=== PATIENT | male | born 1985 | race Caucasian/White ===

== ENCOUNTER 2020-01-09 21:07 | Inpatient (IN) ==
[2020-01-09 21:40] LABS: Appearance Urine Clear (Clear); Bilirubin Urine Negative (Negative); Blood Urine Negative (Negative); Color Urine Yellow; Glucose Urine UA Negative (Negative); Ketones Urine Trace (Negative); Leukocyte Esterase Urine Negative (Negative); Nitrite Urine Negative (Negative); Protein Urine Negative (Negative); Specific Gravity Urine 1.034 (1.000-1.030); Urobilinogen Urine Negative (Negative)
[2020-01-09 21:56] LABS: Eosinophils # (auto) 0.06 K/uL (0-0.5); Eosinophils % (auto) 0.8 %; Hematocrit (blood only) 47.5 % (42-52); Hemoglobin 16.6 g/dL (14.0-18.0); Immature Granulocytes # (auto) 0.01 K/uL (0.00-0.02); Immature Granulocytes % (auto) 0.1 %; Lymphocytes # (auto) 1.54 K/uL (1.2-3.4); Lymphocytes % (auto) 21.8 %; Mean Corpuscular Hemoglobin 30.7 pg (25-34); Mean Corpuscular Hgb Conc 34.9 g/dL (32-36); Mean Corpuscular Volume 87.8 fL (80-100); Mean Platelet Volume 9.7 fL (7.4-10.4); Monocytes # (auto) 0.73 K/uL (0.11-0.59); Monocytes % (auto) 10.3 %; Neutrophils # (auto) 4.73 K/uL (1.4-6.5); Platelet Count 183 K/uL (130-400); RDW Coefficient of Variation 12.7 % (11.5-14.5); RDW Standard Deviation 40.4 fL (36.4-46.3); Red Blood Count 5.41 M/uL (4.7-6.1); White Blood Count 7.07 K/uL (4.8-10.8)
[2020-01-09 22:06] LABS: Albumin Level 3.5 gm/dl (3.4-5.0); Calcium 8.5 mg/dl (8.5-10.1); Creatinine Clr Calc Pharmacy 107.7 ml/min; Est GFR (African American) 110.4; Est GFR (Non-African American) 95.2; Potassium 3.6 mmol/L (3.5-5.1)
[2020-01-09 22:07] LABS: Acetaminophen < 2 ug/ml (10-30); Salicylate < 1.7 mg/dl (2.8-20)
[2020-01-09 22:08] LABS: Amphetamines+Metham, Urine Neg (Neg); Barbiturates, Urine Neg (Neg); Benzodiazepine, Urine Neg (Neg); Cocaine, Urine Neg (Neg); MDMA (Ecstacy), Urine Neg (Neg); Methadone, Urine Neg (Neg); Opiate, Urine Neg (Neg); Phencyclidine, Urine Neg (Neg)
[2020-01-09 22:16] LABS: Bilirubin,Total 0.2 mg/dl (0.2-1); Globulin 3.6 gm/dl (2.5-4.0); Thyroid Stimulating Hormone 1.49 uIu/ml (0.300-4.500); Total Protein 7.1 gm/dl (6.4-8.2)
--- NOTE | 2020-01-10 00:15 | Emergency Department Note ---
Entered by Bull Callahan acting as a scribe for History of Present Illness General Chief complaint: Mental Health Evaluation Stated complaint: suicidal ideation Time Seen by Provider: 01/09/20 21:14 Source: patient History of Present Illness Onset (ago): day(s) (last night) Location: head Pain Consistency: + constant Quality: + other (suicidal ideations) Exacerbated By: + other (worsening anxiety and depression) Associated symptoms: + denies other symptoms (physical complaints) The patient is a 34 y/o male who presents to the ED w/ CC of constant suicidal ideations beginning last evening. The patient states his anxiety and depression has been worsening over the past few days. He reports he cannot handle it anymore and developed suicidal ideations last night while he was sleeping. The patient notes he tried to go back to sleep after his suicidal thoughts occurred, but they did not resolve with sleep. He states he decided after this that he wanted to get help. The patient reports he has not been taking his medication due to the lack of insurance. He notes he was in the [facility] 18 years ago for medication adjustment. He denies physical complaints. Home Medications Home Medications Medication Instructions Recorded Confirmed Type fluoxetine 40 mg PO QAM 30 Days #60 cap 01/13/20 Rx Allergies Allergy/AdvReac Type Severity Reaction Status Date / Time amoxicillin Allergy Unknown UNKNOWN Verified 09/29/16 10:35 ampicillin Allergy Unknown UNKNOWN Verified 09/29/16 10:35 Bactrim Allergy Unknown UNKNOWN Verified 09/29/16 10:35 Past Med/Surg History Medical History Ankle pain (Inactive) Anxiety Depression Neck pain on left side (Inactive) Non-cardiac chest pain (Inactive) Surgical History No pertinent past surgical history Family History Other Diabetes Hypertension Social History Preferred Language: Comoran Communication Ability: Effective Beliefs That Will Affect Care: None Feels Safe at Home: Yes Smoking Status: Never smoker Tobacco Type: smokeless tobacco ; Review of Systems See HPI for pertinent positives & negatives. and A total of 10 systems reviewed and were otherwise negative Physical Exam Vital Signs Vital Signs - 24 hr 01/09/20 21:11 01/10/20 00:56 01/10/20 02:21 Temperature 37 C Temperature Source Oral Pulse Rate 94 H 72 Pulse Rate [Right Finger] 72 Pulse Rhythm Regular Pulse Rhythm [Right Finger] Regular Respiratory Rate 14 18 16 Respiratory Effort / Characteristics Non-Labored Spontaneous Non-Labored Spontaneous Respiratory Depth Normal Normal Respiratory Pattern Regular Blood Pressure 145/91 H 114/65 Blood Pressure [Right Arm] 114/65 Blood Pressure Mean 109 Blood Pressure Mean [Right Arm] 81 Blood Pressure Position [Right Arm] Lying Pulse Oximetry 98 95 95 Oxygen Delivery Method Room Air Room Air Room Air Sepsis Recent Fever Within 48 Hours No Sepsis New/Unexplained Change in Mental Status No Sepsis Action Taken by Nursing No Action Required GENERAL: Awake, alert, well-appearing, in no acute distress HENT: Normocephalic, atraumatic. Oropharynx unremarkable. EYES: Normal conjunctiva. Sclera non-icteric. NECK: Supple. No nuchal rigidity. FROM. No JVD. RESPIRATORY: Clear to auscultation. CARDIAC: Regular rate, normal rhythm. Extremities warm and well perfused. Pulses equal. ABDOMEN: Soft, non-distended. No tenderness to palpation. No rebound or guarding. No masses. RECTAL: Deferred. MUSCULOSKELETAL: Chest examination reveals no tenderness. The back is symmetrical on inspection without obvious abnormality. There is no CVA tenderness to palpation. No joint edema. LOWER EXTREMITIES: Calves are equal size bilaterally and non-tender. No edema. No discoloration. NEURO: Normal sensorium. No sensory or motor deficits noted. SKIN: No rash or jaundice noted. PSYCH: Positive SI. Negative HI. Course Course 2216: Past medical records reviewed. The patient was evaluated in room A04B. A complete history and physical exam was performed. 2224: The patient is medically cleared. Administered Medications Discontinued Medications [facility] [place] Stop: 02/09/20 12:59 Last Admin: 01/11/20 08:51 Dose: 20 mg Documented by: [id number] Admin: 01/10/20 13:24 Dose: 20 mg Documented by: [id number] Fluoxetine HCl (Prozac) 40 mg PO QAM [facility] Stop: 02/11/20 08:59 Last Admin: 01/13/20 08:23 Dose: 40 mg Documented by: [id number] Admin: 01/12/20 09:01 Dose: 40 mg Documented by: [id number] Fluoxetine HCl (Prozac) 20 mg PO ONE ONE Stop: 01/11/20 13:01 Last Admin: 01/11/20 13:11 Dose: 20 mg Documented by: [id number] Medical Decision Making Differential Diagnosis Differential diagnoses considered include mood disorder, infection, hypoglycemia, electrolyte abnormalities, cardiac sources, intracerebral event, toxicologic, neurologic, as well as others. Medical Records Attestation: I reviewed the patient's medical records. Home Medications Current Medication List: was personally reviewed by me Laboratory Data Attestation: I reviewed the patient's lab results. Result diagrams: 01/09/20 21:34 01/09/20 21:34 Lab Results 01/09/20 01/09/20 01/09/20 Range/Units 21:21 21:21 21:34 WBC 7.07 (4.8-10.8) K/uL RBC 5.41 (4.7-6.1) M/uL Hgb 16.6 (14.0-18.0) g/dL Hct 47.5 (42-52) % MCV 87.8 (80-100) fL MCH 30.7 (25-34) pg MCHC 34.9 (32-36) g/dL RDW Std Deviation 40.4 (36.4-46.3) fL RDW Coeff of Cole 12.7 (11.5-14.5) % Plt Count 183 (130-400) K/uL MPV 9.7 (7.4-10.4) fL Immature Gran % (Auto) 0.1 % Neut % (Auto) 67.0 % Lymph % (Auto) 21.8 % Newberry % (Auto) 10.3 % Eos % (Auto) 0.8 % Baso % (Auto) 0.0 % Immature Gran # (Auto) 0.01 (0.00-0.02) K/uL Neut # (Auto) 4.73 (1.4-6.5) K/uL Lymph # (Auto) 1.54 (1.2-3.4) K/uL Newberry # (Auto) 0.73 H (0.11-0.59) K/uL Eos # (Auto) 0.06 (0-0.5) K/uL Baso # (Auto) 0.00 (0-0.2) K/uL Sodium (136-145) mmol/L Potassium (3.5-5.1) mmol/L Chloride (98-107) mmol/L Carbon Dioxide (21-32) mmol/L Anion Gap (3-11) BUN (7-18) mg/dl Creatinine (0.6-1.4) mg/dl Est Cr Clr Drug Dosing ml/min Est GFR ( Amer) Est GFR (Non-Af Amer) BUN/Creatinine Ratio (10-20) Glucose (70-99) mg/dl Calcium (8.5-10.1) mg/dl Total Bilirubin (0.2-1) mg/dl AST (15-37) U/L ALT (12-78) U/L Alkaline Phosphatase (45-117) U/L Total Protein (6.4-8.2) gm/dl Albumin (3.4-5.0) gm/dl Globulin (2.5-4.0) gm/dl Albumin/Globulin Ratio (0.9-2) TSH (0.300-4.500) uIu/ml Urine Color Yellow Urine Appearance Clear (Clear) Urine pH 5.0 (4.5-7.5) Ur Specific Murphy 1.034 H (1.000-1.030) Urine Protein Negative (Negative) Urine Glucose (UA) Negative (Negative) Urine Ketones Trace H (Negative) Urine Blood Negative (Negative) Urine Nitrite Negative (Negative) Urine Bilirubin Negative (Negative) Urine Urobilinogen Negative (Negative) Ur Leukocyte Esterase Negative (Negative) Salicylates (2.8-20) mg/dl Urine Opiates Screen Neg (Neg) Ur Methadone, Qual Neg (Neg) Acetaminophen (10-30) ug/ml Urine Barbiturates Neg (Neg) Ur Phencyclidine (PCP) Neg (Neg) U Amphetamin/Meth Scrn Neg (Neg) MDMA (Ecstasy) Screen Neg (Neg) U Benzodiazepines Scrn Neg (Neg) Ur Cocaine Metabolite Neg (Neg) U Marijuana (THC) Screen Neg (Neg) Ethyl Alcohol mg/dL (0-3) mg/dl 01/09/20 01/09/20 01/09/20 Range/Units 21:34 21:34 21:34 WBC (4.8-10.8) K/uL RBC (4.7-6.1) M/uL Hgb (14.0-18.0) g/dL Hct (42-52) % MCV (80-100) fL MCH (25-34) pg MCHC (32-36) g/dL RDW Std Deviation (36.4-46.3) fL RDW Coeff of Cole (11.5-14.5) % Plt Count (130-400) K/uL MPV (7.4-10.4) fL Immature Gran % (Auto) % Neut % (Auto) % Lymph % (Auto) % Newberry % (Auto) % Eos % (Auto) % Baso % (Auto) % Immature Gran # (Auto) (0.00-0.02) K/uL Neut # (Auto) (1.4-6.5) K/uL Lymph # (Auto) (1.2-3.4) K/uL Newberry # (Auto) (0.11-0.59) K/uL Eos # (Auto) (0-0.5) K/uL Baso # (Auto) (0-0.2) K/uL Sodium 140 (136-145) mmol/L Potassium 3.6 (3.5-5.1) mmol/L Chloride 109 H (98-107) mmol/L Carbon Dioxide 26 (21-32) mmol/L Anion Gap 5.0 (3-11) BUN 16 (7-18) mg/dl Creatinine 1.01 (0.6-1.4) mg/dl Est Cr Clr Drug Dosing 107.7 ml/min Est GFR ( Amer) 110.4 Est GFR (Non-Af Amer) 95.2 BUN/Creatinine Ratio 16.0 (10-20) Glucose 91 (70-99) mg/dl Calcium 8.5 (8.5-10.1) mg/dl Total Bilirubin 0.2 (0.2-1) mg/dl AST 11 L (15-37) U/L ALT 20 (12-78) U/L Alkaline Phosphatase 81 (45-117) U/L Total Protein 7.1 (6.4-8.2) gm/dl Albumin 3.5 (3.4-5.0) gm/dl Globulin 3.6 (2.5-4.0) gm/dl Albumin/Globulin Ratio 1.0 (0.9-2) TSH 1.490 (0.300-4.500) uIu/ml Urine Color Urine Appearance (Clear) Urine pH (4.5-7.5) Ur Specific Murphy (1.000-1.030) Urine Protein (Negative) Urine Glucose (UA) (Negative) Urine Ketones (Negative) Urine Blood (Negative) Urine Nitrite (Negative) Urine Bilirubin (Negative) Urine Urobilinogen (Negative) Ur Leukocyte Esterase (Negative) Salicylates < 1.7 L (2.8-20) mg/dl Urine Opiates Screen (Neg) Ur Methadone, Qual (Neg) Acetaminophen < 2 L (10-30) ug/ml Urine Barbiturates (Neg) Ur Phencyclidine (PCP) (Neg) U Amphetamin/Meth Scrn (Neg) MDMA (Ecstasy) Screen (Neg) U Benzodiazepines Scrn (Neg) Ur Cocaine Metabolite (Neg) U Marijuana (THC) Screen (Neg) Ethyl Alcohol mg/dL < 3.0 (0-3) mg/dl ECG Data Attestation: I personally reviewed and interpreted this ECG as follows: Indication: + other (admission) Rate (beats per minute): 59 Rhythm: + sinus bradycardia ECG Intervals/blocks: + Normal QT-c (437) ECG ST segments: no ST depression and no ST elevation Blood Pressure Blood Pressure Findings: Elevated blood pressure Blood Pressure Disposition: further management by hospitalist [facility] Narrative This is a 34-year-old male who presents the emergency department complaining of suicidal ideations. Patient was medically cleared by me. He was independently evaluated by psychiatric case management as well as 3 S. Patient was admitted to 3 [facility]. Impression & Plan Mood disorder Discharge Plan Visit Data *Final* Discharge Date/Time: 01/10/20 02:21 Chief Complaint: Mental Health Evaluation Stated Complaint: suicidal ideation ED Provider: Jaxon Ramirez Discharge Problem: Mood disorder Patient Disposition: Admitted As Inpatient Discharge Instructions Interventions: ED Discharge Assessment Last Done: 01/10/20 02:21 The smita's documentation has been prepared under my direction and personally reviewed by me in its entirety. I confirm that the note above accurately reflects all work, treatment, procedures, and medical decision making performed by me.
[2020-01-10] MEDS ORDERED: MAGNESIUM HYDROXIDE SUSP 30 ML UDC PO PRN (01:53)
[2020-01-10] MEDS ORDERED: ALUMINUM/MAGNESIUM SUSP 30 ML UDC PO PRN (01:53)
[2020-01-10] MEDS ORDERED: BISMUTH SUBSALICYLATE PER ML OMNICELL CHARGE PO PRN (01:53)
[2020-01-10] MEDS ORDERED: SODIUM CHLORIDE 0.65% NA SOLN 45 ML (OCEAN) PRN (01:53)
[2020-01-10] MEDS ORDERED: ACETAMINOPHEN 325 MG TAB PO PRN (01:53)
--- NOTE | 2020-01-10 11:47 | Electrocardiogram Report ---
Test Reason : Blood Pressure : / mmHG Vent. Rate : 059 BPM Atrial Rate : 059 BPM P-R Int : 156 ms QRS Dur : 084 ms QT Int : 442 ms P-R-T Axes : 062 055 063 degrees QTc Int : 437 ms Sinus bradycardia Otherwise normal ECG When compared with ECG of 29-SEP-2016 10:19, No significant change was found Confirmed by Jair Galvan [id number]) on 01/10/2020 11:46:51 AM Referred By: REFERRED SELF Confirmed By:Jair Galvan
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
[2020-01-10] MEDS: FLUOXETINE HCL 20 MG CAP PO SCH (13:24)
[2020-01-11] MEDS: FLUOXETINE HCL 20 MG CAP PO SCH (08:51)
--- NOTE | 2020-01-11 12:26 | Psychiatric Progress Note ---
Date of Service January 11, 2020 Impression / Recommendations Impression 34-year-old partnered male with a history of depression and anxiety who presents with suicidality, worsening mood and anxiety for the past month since he went off fluoxetine. He came in for voluntary treatment at the urging of his fialonzo, and is willing to resume antidepressant medication and be referred for outpatient psychiatry and therapy. He has never had a full course of therapy, and would benefit from that as well as ongoing medication management. Pt was agreeable with re-trial of fluoxetine, which is being titrated as tolerated. He endorses subclinical PTSD symptoms related to history of incarceration 10 years ago, has limited supports with strained relationships with multiple family members. Inpatient treatment is medically necessary due to the severity of his symptoms and risk for suicide if discharged prematurely. (1) Depression: 01/10 -resume fluoxetine 20 mg daily, and consider dose titration. Reviewed that this medication is available for $4 at [facility], even without insurance. -Encourage participation in groups and therapy. Work on healthy coping skills and discharge safety plan. -Family meeting with deborah, whom he lives with. -Refer for outpatient psychiatric care and therapy. -Assist with applying for MA. 01/11 - Titrating fluoxetine to 40mg - pt provided with additional 20mg dose this afternoon, and will increased to 40mg qAM tomorrow - Pt reporting improvement in mood overall, but admits to ongoing anxiety - Pt scheduled for a family meeting with his emy on 01/13 to discuss safety and discharge planning - Completed MA application yesterday - Encourage completion of a safety plan and ongoing group participation. (2) Anxiety: 01/10 -patient reports JOSIANE symptoms with occasional panic attacks. Resume fluoxetine as above, and offer hydroxyzine as needed in the interim. Work on coping skills and behavioral techniques for managing anxiety. 01/11 - Encouraging ongoing group participation - hydroxyzine as needed for acute anxiety - Titrating fluoxetine to 40mg as above Inventory Assets Strengths: Willing for treatment, supportive deborah Needs: Outpatient treatment adherence, psychotherapy Risk Factors Assessment Male: Yes : Yes Do You Have Access To A Gun?: No Health Problems: No Mental Health Diagnoses: Yes Substance Use Disorders: No Previous Attempt: No Family History of Suicide: No Previous Psychiatric Hospitalization: Yes Hopelessness: Yes Smoker: No Protective Factors Assessment Anglican Beliefs: No : No Responsible for Young Children: Yes Employed: Yes ([employer]) Stable Relationships: Yes Supportive Family: No Good Rapport with Provider: No Interval History Identifying Information JERRY HORNER is a 34-year-old M who currently lives in [place], has a history of depression and anxiety and stopped medications about a month ago, and was admitted on 01/10/20 01:53 on a 201 voluntary commitment for anxiety and suicidal thoughts. Chief Complaint "I'm feeling good other than not sleeping." Review of Systems Notes Constitutional: reports increased fatigue Cardiovascular: denied Respiratory: denied Gastrointestinal: denied Neurological: denied Psychiatric: denies symptoms other than stated above Total of at least 10 systems reviewed, pertinent positives as above and in HPI. Sleep Information Total Hours of Sleep: 7.75 Sleep Comments: admitted at 0226. Meal Information Percent Meal Consumed - Breakfast: 100 Percent Meal Consumed - Dinner: 100 Subjective Subjective Patient was seen & assessed and interval progress reviewed with nursing and social work. Staff report the patient has been attending some group programming, but has largely been spending time isolating in his room. Reportedly incongruent with observed affect, patient rated his mood a 9/10 las evening. Pt requires a meeting to be scheduled with his fiance, but did complete an MA application yesterday. Pt was seen today to assess progress since admission. Pt provides verbal consent to allow Sumaya Santos PA-C to observe today's encounter. Pt states that he is tired today, admitting that he has not been sleeping particularly well for the past month. Pt does believe his poor sleep is related to his anxiety, as "I just can't shut my brain off." Pt denies a desire to "become reliant an sleep medications forever." We did discuss the importance of sleep and occasional benefit of utilizing medications to promote consistent sleep. Pt reports his mood is "better", but endorses ongoing anxiety. He does state "I needed this. I kept putting it off, but I needed to come in." Pt is agreeable with titrating fluoxetine to 40mg, but providing an extra 20mg dose today. Pt denies additional needs or concerns today. Physical Exam Psychiatric Orientation: alert, oriented x 3 and cooperative Apperance: appropriately dressed, appropriately groomed and appeared stated age Eye Contact: good eye contact Motor Behavior: steady gait and station and no abnormal motor movements Speech: normal rate/rhythm/volume of speech Affect: + blunted affect (appearing somewhat subdued) Mood: + anxious mood; no depressed mood ("better") Thought Process: goal directed thought process, clear/coherent thought process and thought association intact Thought Content: reality based without delusions; no hopelessness Suicidal Thoughts: denies suicidal thoughts Homicidal Thoughts: denies homicidal thoughts Hallucinations: no auditory hallucinations and no visual hallucinations Cognition: attention grossly intact and language grossly intact Insight: + fair insight Judgement: + fair judgement Vital Signs (Past 24 Hours) Last Vital Signs Temp 36.9 C 01/11/20 06:00 Pulse 74 01/11/20 06:00 Resp 16 01/11/20 06:00 BP 113/77 01/11/20 06:00 Pulse Ox 95 01/10/20 02:21 Results & Data ([facility]) Current Inpatient Medications Current Inpatient Medications: Current Inpatient Medications Acetaminophen (Tylenol) 650 mg PO Q4H PRN PRN Reason: Headache or Minor Fever Stop: 02/09/20 01:52 Al Hydrox/Mg Hydrox/Simethicone (Maalox) 30 ml PO Q4H PRN PRN Reason: GI Upset Stop: 02/09/20 01:52 Bismuth Subsalicylate (Kaopectate) 15 ml PO PRN PRN PRN Reason: Loose Stool Stop: 02/09/20 01:52 Fluoxetine HCl (Prozac) 40 mg PO QAM YULI Stop: 02/11/20 08:59 Hydroxyzine HCl (Vistaril) 50 mg PO HSZ PRN PRN Reason: Insomnia Stop: 02/09/20 01:52 Hydroxyzine HCl (Vistaril) 25 mg PO Q4H PRN PRN Reason: Anxiety Stop: 02/09/20 01:52 Magnesium Hydroxide (Milk Of Magnesia) 30 ml PO DAILY PRN PRN Reason: Constipation Stop: 02/09/20 01:52 Sodium Chloride ([place] Nasal) 1 - 2 sprays NA PRN PRN PRN Reason: Nasal Dryness/Congestion Stop: 02/09/20 01:52 Mental Health & Subst Abuse Tx Therapist Name of Therapist: Denies Wedding Makeup Artist Name of Wedding Makeup Artist: None Post Discharge Appointments Primary Care Physician Name Of Family Doctor: Denies-in the past [facility] [place] office Contact Information Discharge Discharge [address]: [address] [place] [phone] (1) Depression Active/Remission status: currently active Depression Type: major depressive disorder Major depression episode severity: severe Major depression recurrence: recurrent Psychotic features: without psychotic features Qualified Code(s): F33.2 - Major depressive disorder, recurrent severe without psychotic features
[2020-01-11] MEDS ORDERED: FLUOXETINE HCL 20 MG CAP PO ONE (13:00)
[2020-01-12] MEDS: FLUOXETINE HCL 20 MG CAP PO SCH (09:01)
--- NOTE | 2020-01-12 14:04 | Psychiatric Progress Note ---
Date of Service January 12, 2020 Impression / Recommendations Impression 34-year-old partnered male with a history of depression and anxiety who presents with suicidality, worsening mood and anxiety for the past month since he went off fluoxetine. He came in for voluntary treatment at the urging of his fialonzo, and is willing to resume antidepressant medication and be referred for outpatient psychiatry and therapy. He has never had a full course of therapy, and would benefit from that as well as ongoing medication management. Pt was agreeable with re-trial of fluoxetine, which is being titrated as tolerated. He endorses subclinical PTSD symptoms related to history of incarceration 10 years ago, has limited supports with strained relationships with multiple family members. Inpatient treatment is medically necessary due to the severity of his symptoms and risk for suicide if discharged prematurely. (1) Depression: 01/10 -resume fluoxetine 20 mg daily, and consider dose titration. Reviewed that this medication is available for $[address] [facility], even without insurance. -Encourage participation in groups and therapy. Work on healthy coping skills and discharge safety plan. -Family meeting with deborah, whom he lives with. -Refer for outpatient psychiatric care and therapy. -Assist with applying for MA. 01/11 - Titrating fluoxetine to 40mg - pt provided with additional 20mg dose this afternoon, and will increased to 40mg qAM tomorrow - Pt reporting improvement in mood overall, but admits to ongoing anxiety - Pt scheduled for a family meeting with his emy on 01/13 to discuss safety and discharge planning - Completed MA application yesterday - Encourage completion of a safety plan and ongoing group participation. 01/12 - Tolerating fluoxetine 40mg - Family meeting scheduled for tomorrow with his emy - Reportedly qualifies for medical assistance; however, will require support from [facility] for aftercare referrals until insurance becomes active (2) Anxiety: 01/10 -patient reports JOSIANE symptoms with occasional panic attacks. Resume fluoxetine as above, and offer hydroxyzine as needed in the interim. Work on coping skills and behavioral techniques for managing anxiety. 01/11 - Encouraging ongoing group participation - hydroxyzine as needed for acute anxiety - Titrating fluoxetine to 40mg as above 01/12 - Reports mild improvement in anxiety, primary worry at this time is related to aftercare Inventory Assets Strengths: Willing for treatment, supportive deborah Needs: Outpatient treatment adherence, psychotherapy Risk Factors Assessment Male: Yes : Yes Do You Have Access To A Gun?: No Health Problems: No Mental Health Diagnoses: Yes Substance Use Disorders: No Previous Attempt: No Family History of Suicide: No Previous Psychiatric Hospitalization: Yes Hopelessness: Yes Smoker: No Protective Factors Assessment Jainism Beliefs: No : No Responsible for Young Children: Yes Employed: Yes ([employer]) Stable Relationships: Yes Supportive Family: No Good Rapport with Provider: No Interval History Identifying Information JERRY HORNER is a 34-year-old M who currently lives in [place], has a history of depression and anxiety and stopped medications about a month ago, and was admitted on 01/10/20 01:53 on a 201 voluntary commitment for anxiety and suicidal thoughts. Chief Complaint "I'm feeling okay." Review of Systems Notes Constitutional: reports fatigue, though somewhat improved today Cardiovascular: denied Respiratory: denied Gastrointestinal: denied Neurological: denied Psychiatric: denies symptoms other than stated above Total of at least 10 systems reviewed, pertinent positives as above and in HPI. Sleep Information Total Hours of Sleep: 6 Sleep Comments: admitted at 0226. Meal Information Percent Meal Consumed - Breakfast: 50 Percent Meal Consumed - Lunch: 90 Percent Meal Consumed - Dinner: 100 Subjective Subjective Patient was seen & assessed and interval progress reviewed with treatment team. Staff reports the patient continues to participate in group and recreational programming. He is expected to complete his intake for services through the [facility]. It was reported that patient does qualify for medical assistance, though will likely still require assistance until his insurance is active. He is scheduled for a family meeting with his girlfriend tomorrow afternoon. Patient was seen today to assess progress since admission. He provides verbal consent to allow Sumaya Santos PA-C to observe today's encounter. Patient states that he is feeling "okay" today. He does admit that "groups are really helpful." He states that he has been noticing significant improvement in his mood, though admits his anxiety remains high as he is "worried about aftercare." Patient states he has been tolerating increased dose of fluoxetine, and is agreeable with maintaining this dose until he is able to follow-up on an outpatient basis. Patient states that he feels as though "my head is in a really good place right now." Patient is hopeful for discharge soon, and remains willing for a family meeting with his girlfriend tomorrow afternoon to discuss safety and aftercare plans. He denies other needs or concerns at this time. Physical Exam Psychiatric Orientation: alert, oriented x 3 and cooperative Apperance: appropriately dressed; not disheveled (Hair unkempt, though hygiene appears adequate) Eye Contact: good eye contact Motor Behavior: steady gait and station and no abnormal motor movements Speech: normal rate/rhythm/volume of speech Affect: + blunted affect (Subdued, though not appearing overtly depressed) Mood: + anxious mood; no depressed mood ("Okay" and "my head is in a really good place") Thought Process: goal directed thought process, linear/logical thought process and thought association intact Thought Content: reality based without delusions; no hopelessness Suicidal Thoughts: denies suicidal thoughts and denies suicidal intent Homicidal Thoughts: denies homicidal thoughts Hallucinations: no auditory hallucinations and no visual hallucinations Cognition: remote memory grossly intact, attention grossly intact and language grossly intact Insight: + fair insight Judgement: + fair judgement Vital Signs (Past 24 Hours) Last Vital Signs Temp 36.3 C L 01/12/20 06:48 Pulse 69 01/12/20 06:48 Resp 18 01/12/20 06:48 BP 116/70 01/12/20 06:48 Pulse Ox 95 01/10/20 02:21 Results & Data ([facility]) Current Inpatient Medications Current Inpatient Medications: Current Inpatient Medications Acetaminophen (Tylenol) 650 mg PO Q4H PRN PRN Reason: Headache or Minor Fever Stop: 02/09/20 01:52 Al Hydrox/Mg Hydrox/Simethicone (Maalox) 30 ml PO Q4H PRN PRN Reason: GI Upset Stop: 02/09/20 01:52 Bismuth Subsalicylate (Kaopectate) 15 ml PO PRN PRN PRN Reason: Loose Stool Stop: 02/09/20 01:52 Fluoxetine HCl (Prozac) 40 mg PO QAM YULI Stop: 02/11/20 08:59 Last Admin: 01/12/20 09:01 Dose: 40 mg Documented by: Hydroxyzine HCl (Vistaril) 50 mg PO HSZ PRN PRN Reason: Insomnia Stop: 02/09/20 01:52 Hydroxyzine HCl (Vistaril) 25 mg PO Q4H PRN PRN Reason: Anxiety Stop: 02/09/20 01:52 Magnesium Hydroxide (Milk Of Magnesia) 30 ml PO DAILY PRN PRN Reason: Constipation Stop: 02/09/20 01:52 Sodium Chloride ([place] Nasal) 1 - 2 sprays NA PRN PRN PRN Reason: Nasal Dryness/Congestion Stop: 02/09/20 01:52 Mental Health & Subst Abuse Tx Psychiatrist Name of Psychiatrist: [facility] to refer Therapist Name of Therapist: [facility] to refer Delivery Merchandiser Name of Delivery Merchandiser: [facility], Lauren Delcid Phone Number for Delivery Merchandiser: [phone] Date of Appointment with Delivery Merchandiser: 01/19/20 Time of Appointment with Delivery Merchandiser: 10am Post Discharge Appointments Primary Care Physician Name Of Family Doctor: [facility]-in the past [facility] [place] office Contact Information Discharge Discharge [address]: [address] [place] [address] (1) Depression Active/Remission status: currently active Depression Type: major depressive disorder Major depression episode severity: severe Major depression recurrence: recurrent Psychotic features: without psychotic features Qualified Code(s): F33.2 - Major depressive disorder, recurrent severe without psychotic features
[2020-01-13] MEDS: FLUOXETINE HCL 20 MG CAP PO SCH (08:23)
--- NOTE | 2020-01-13 15:50 | Discharge Summary ---
Date of Service January 13, 2020 History of Present Illness The patient presented to the ER yesterday, 01/09/2020, reporting worsening anxiety, depression, and suicidal thoughts. He said he has no outpatient providers and stopped taking his antidepressant about a month ago due to lack of insurance, but was in the process of applying for medical assistance so he could get back into treatment. He had an EKG in the ER which was sinus bradycardia with a rate of 59, and QTC of 437. He reported excessive sleep to try to avoid symptoms, and described hearing "an internal voice repeating I should kill myself repeatedly all day long." He denied a specific plan, but was unable to contract for safety outside of the hospital, stating the thoughts were intense and "driving me crazy." On my assessment, he reports his mood and anxiety symptoms have been worsening for the past month, and he started having SI se veral nights ago. He "tried to get through it," went to work the next day, but the thoughts continued and he felt overwhelmed and worried that he would act on them, so he decided to come to the hospital to get help. He denies specific triggers other than "my stress level's been a little higher than usual, but was handling it." Reports work stress and the [employer] where he works has been short staffed, but says "we make the best of it." Reports good relationships with his fiance and 2 children from a previous relationship. He reports depression and anxiety since age 15, was hospitalized at [place] at age 16 due to medication issues, "went off the rails real bad," which he attributes to interactions between antidepressants and ADHD meds. He reports medication has been helpful but he has gone off it frequently as he felt better, then relapsed and had to resume it. He was on fluoxetine 20mg for at least a year, until a month ago when he ran out, and had lost insurance do did not continue it. States it was prescribed by [facility] in [place]. He reports anxiety with excessive worry, shakiness, inability to focus, and several times a week develops chest tightness and SOB, lasting about 10 minutes. Sleep is "all over the place," falls asleep easily, but wakes up frequently and can't fall back to sleep, often gets on his phone. Appetite is erratic, some days eats regularly and other days only eats one meal. Denies weight loss. Denies h/o manic and psychotic symptoms. Denies ADHD symptoms, "I've learned to control that, can keep my focus where I need." He wonders if he has PTSD from "being locked up in the state detention for 2 years," for indecent assault stating "little things can make me cry, shut down." This has occurred over the past month, describes that he gets upset when he hears people yelling, "I just wanna shut down," as it reminds him of halfway. Denies traumatizing experiences in halfway, other than "guards yelling." Denies other symptoms of PTSD, and problems with anger or aggression in recent years. Physical Exam Psychiatric Orientation: alert, oriented x 3 and cooperative Apperance: appropriately dressed, appropriately groomed and appeared stated age; not disheveled (Hair unkempt, though hygiene appears adequate) Eye Contact: good eye contact and + poor eye contact Motor Behavior: steady gait and station, no abnormal motor movements and + psychomotor agitation Speech: normal rate/rhythm/volume of speech Affect: euthymic affect, + anxious affect (mildly) and mood congruent with affect Mood: + anxious mood (mildly ); no depressed mood ("Okay" and "my head is in a really good place") Thought Process: goal directed thought process, linear/logical thought process, clear/coherent thought process and thought association intact Thought Content: reality based without delusions; no hopelessness Suicidal Thoughts: denies suicidal thoughts and denies suicidal intent Homicidal Thoughts: denies homicidal thoughts Hallucinations: no auditory hallucinations and no visual hallucinations Cognition: recent memory grossly intact, remote memory grossly intact, attention grossly intact and language grossly intact Estimated Intelligence: consistent with education level Insight: + fair insight Judgement: + fair judgement Vital Signs (Past 24 Hours) Last Vital Signs Temp 36.5 C 01/13/20 15:31 Pulse 70 01/13/20 15:31 Resp 18 01/13/20 15:31 BP 113/77 01/13/20 15:31 Pulse Ox 95 01/13/20 15:31 Principal Diagnosis Major Depressive Disorder, Generalized Anxiety Disorder Psychiatric Data Day of Discharge Assessment family meeting with occurred with family welfare social work professor and went well. with being supportive. Pt considering finding a different job as finding the stress of his current job not a good fit for him. We have him be off work for this coming work week (till Dec 19) to help with transition and adjusting and to help assist with attending upcoming appointment of this coming week. U appt for 12/19 with pt interested in attending and aim for that appt to establish his outpatient aftercare appointments. Pt taking Prozac 40mg a day and desiring to remain on it. He had not been following up with providers in past couple years and has not had own Prozac script for some time now and finds Prozac alleviating and well tolerated. no SI. no manic symptoms, anxiety and depressive symptoms improving and feels ready for discharge with assessed as being appropriate for discharge at this time Transition of Care Transition Of Care Record: was reviewed with the patient Advance Directives Advance Directives Information Provided: Yes Advance Directives: No Living Will: No Power of Senior Media Director: No Advance Directives Reason:: Declines as Mental Health Visit. Risk Factors Assessment Male: Yes : Yes Do You Have Access To A Gun?: No Health Problems: No Mental Health Diagnoses: Yes Substance Use Disorders: No Previous Attempt: No Family History of Suicide: No Previous Psychiatric Hospitalization: Yes Hopelessness: Yes Smoker: No Protective Factors Assessment Advent Beliefs: No : No Responsible for Young Children: Yes Employed: Yes ([employer]) Stable Relationships: Yes Supportive Family: No Good Rapport with Provider: No Tobacco Cessation at Discharge Tobacco Cessation Medication Prescribed at Discharge: Not Applicable/Non-Smoker Total Time Total Time Spent: Greater Than 30 Minutes Total Time Includes: Examination of the patient, Discharge Planning, Medication Reconciliation and As well as (review with [facility] staff ) Discharge Data Lab Results 01/09/20 01/09/20 01/09/20 21:21 21:21 21:34 WBC 7.07 RBC 5.41 Hgb 16.6 Hct 47.5 MCV 87.8 MCH 30.7 MCHC 34.9 RDW Std Deviation 40.4 RDW Coeff of Cole 12.7 Plt Count 183 MPV 9.7 Immature Gran % (Auto) 0.1 Neut % (Auto) 67.0 Lymph % (Auto) 21.8 [place] % (Auto) 10.3 Eos % (Auto) 0.8 Baso % (Auto) 0.0 Immature Gran # (Auto) 0.01 Neut # (Auto) 4.73 Lymph # (Auto) 1.54 [place] # (Auto) 0.73 H Eos # (Auto) 0.06 Baso # (Auto) 0.00 Sodium Potassium Chloride Carbon Dioxide Anion Gap BUN Creatinine Est Cr Clr Drug Dosing Est GFR ( Amer) Est GFR (Non-Af Amer) BUN/Creatinine Ratio Glucose Calcium Total Bilirubin AST ALT Alkaline Phosphatase Total Protein Albumin Globulin Albumin/Globulin Ratio TSH Urine Color Yellow Urine Appearance Clear Urine pH 5.0 Ur Specific Cisco 1.034 H Urine Protein Negative Urine Glucose (UA) Negative Urine Ketones Trace H Urine Blood Negative Urine Nitrite Negative Urine Bilirubin Negative Urine Urobilinogen Negative Ur Leukocyte Esterase Negative Salicylates Urine Opiates Screen Neg Ur Methadone, Qual Neg Acetaminophen Urine Barbiturates Neg Ur Phencyclidine (PCP) Neg U Amphetamin/Meth Scrn Neg MDMA (Ecstasy) Screen Neg U Benzodiazepines Scrn Neg Ur Cocaine Metabolite Neg U Marijuana (THC) Screen Neg Ethyl Alcohol mg/dL 01/09/20 01/09/20 01/09/20 21:34 21:34 21:34 WBC RBC Hgb Hct MCV MCH MCHC RDW Std Deviation RDW Coeff of Cole Plt Count MPV Immature Gran % (Auto) Neut % (Auto) Lymph % (Auto) [place] % (Auto) Eos % (Auto) Baso % (Auto) Immature Gran # (Auto) Neut # (Auto) Lymph # (Auto) [place] # (Auto) Eos # (Auto) Baso # (Auto) Sodium 140 Potassium 3.6 Chloride 109 H Carbon Dioxide 26 Anion Gap 5.0 BUN 16 Creatinine 1.01 Est Cr Clr Drug Dosing 107.7 Est GFR ( Amer) 110.4 Est GFR (Non-Af Amer) 95.2 BUN/Creatinine Ratio 16.0 Glucose 91 Calcium 8.5 Total Bilirubin 0.2 AST 11 L ALT 20 Alkaline Phosphatase 81 Total Protein 7.1 Albumin 3.5 Globulin 3.6 Albumin/Globulin Ratio 1.0 TSH 1.490 Urine Color Urine Appearance Urine pH Ur Specific Cisco Urine Protein Urine Glucose (UA) Urine Ketones Urine Blood Urine Nitrite Urine Bilirubin Urine Urobilinogen Ur Leukocyte Esterase Salicylates < 1.7 L Urine Opiates Screen Ur Methadone, Qual Acetaminophen < 2 L Urine Barbiturates Ur Phencyclidine (PCP) U Amphetamin/Meth Scrn MDMA (Ecstasy) Screen U Benzodiazepines Scrn Ur Cocaine Metabolite U Marijuana (THC) Screen Ethyl Alcohol mg/dL < 3.0 Hospital Course (1) Depression: 01/10 -resume fluoxetine 20 mg daily, and consider dose titration. Reviewed that this medication is available for $[address] [facility], even without insurance. -Encourage participation in groups and therapy. Work on healthy coping skills and discharge safety plan. -Family meeting with deborah, whom he lives with. -Refer for outpatient psychiatric care and therapy. -Assist with applying for MA. 01/11 - Titrating fluoxetine to 40mg - pt provided with additional 20mg dose this afternoon, and will increased to 40mg qAM tomorrow - Pt reporting improvement in mood overall, but admits to ongoing anxiety - Pt scheduled for a family meeting with his emy on 01/13 to discuss safety and discharge planning - Completed MA application yesterday - Encourage completion of a safety plan and ongoing group participation. 01/12 - Tolerating fluoxetine 40mg - Family meeting scheduled for tomorrow with his emy - Reportedly qualifies for medical assistance; however, will require support from [facility] for aftercare referrals until insurance becomes active (2) Anxiety: 01/10 -patient reports JOSIANE symptoms with occasional panic attacks. Resume fluoxetine as above, and offer hydroxyzine as needed in the interim. Work on coping skills and behavioral techniques for managing anxiety. 01/11 - Encouraging ongoing group participation - hydroxyzine as needed for acute anxiety - Titrating fluoxetine to 40mg as above 01/12 - Reports mild improvement in anxiety, primary worry at this time is related to aftercare Mental Health & Subst Abuse Tx Psychiatrist Name of Psychiatrist: [facility] to refer Psychiatrist Release of Information: Obtained, Reviewed and Signed Therapist Name of Therapist: [facility] to refer Therapist Release of Information: Obtained, Reviewed and Signed Scrubber System Attendant Name of Scrubber System Attendant: [facility] Lauren Spearsxler Phone Number for Scrubber System Attendant: [phone] Date of Appointment with Scrubber System Attendant: 01/19/20 Time of Appointment with Scrubber System Attendant: 10am Case Management Appointment Comment: [address], [place] [address] Scrubber System Attendant Release of Information: Obtained, Reviewed and Signed Post Discharge Appointments Primary Care Physician Name Of Family Doctor: [facility] Primary Care Provider Appointment Comment: call to establish when insurance becomes active Smoking Cessation Counseling Tobacco Cessation Medication Prescribed at Discharge: Not Applicable/Non-Smoker Contact Information Discharge Discharge Address: [address] [place] [address] Discharge Plan Discharge Items Patient Disposition: Home - Self-Care Reason For Visit: DEPRESSION, SI Discharge Diagnosis: Major Depressive Disorder Activity: Resume your previous activity Non-emergency contact: Primary Care Provider, Psychiatrist and Therapist Call non-emergency contact if: you have any medication questions and your symptoms worsen Follow-up/Referrals: PCP,NO [Primary Care Provider] - Diet: Regular Addtl Attending Provider Instructions: SPECIAL CARE INSTRUCTIONS: 1. Follow through with your scheduled aftercare appointments. If unable to keep an appointment, please call to reschedule. 2. Take your medication only as prescribed. Medication should not be changed or stopped without the approval of your doctor. In the event of worsening symptoms or concerns about side effects, contact your doctor immediately. 3. Utilize new healthy coping skills, anger management skills, and stress management skills learned during your hospitalization. Journal feelings and process them with a support person. Identify stressors or situations that may result in relapse, deterioration or inappropriate behaviors and develop a plan to deal with those issues. 4. If your coping skills are ineffective and you are in crisis, contact your outpatient providers for direction. If unable to reach your providers, please call the CAN HELP LINE AT or go to the closest Emergency Room. 5. Avoid alcohol and un-prescribed drugs. 6. You have been provided with the Mental Health Advance Directives Pamphlet for your review. AFTERCARE APPOINTMENTS: * Please call your insurance company prior to your scheduled appointment to confirm your aftercare providers are covered. Take your insurance information to your appointments. WHO TO CALL AND WHEN: Medical Emergencies: For questions or emergencies related to your hospital stay, please contact the Inpatient Behavioral Health Unit at [phone]. A bunch maker is on-call 21/06 for the Behavioral Health Unit for emergencies At any time you feel your situation is an emergency, you may also call 911 mediately. Your Doctors Instructions noted above were prepared by provider Abhinav Lester MD. Pending Studies at Discharge: No Stand-Alone Forms: My [employer], Smoking Cessation, Suicide Prevention Resources Medications and DC Order Prescriptions: New fluoxetine 20 mg Capsule 40 mg PO QAM 30 Days Qty: 60 RF: 0 Discharge Orders: Discharge Order (Routine); Ordered 01/13/20 Ordered By: Abhinav Lester Admission Data Admit Date/Time: 01/10/20 01:53 Attending Provider: Caitlin Enciso Admit Provider: Lyly Gauthier Primary Care Provider: PCP,NO Other Interventions: Discharge Summary Assessment (RN) Last Done: 01/13/20 15:31 PSY Interdisciplinary Discharge Planning Last Done: 01/13/20 15:11 Coding Level of Care Code 24722 D/C day mgmt > 30 min Diagnoses Depression F33.2 Depression Type: major depressive disorder Major depression recurrence: recurrent Active/Remission status: currently active Major depression episode severity: severe Psychotic features: without psychotic features Anxiety F41.9
== END 2020-01-13 15:55 | disposition home or self-care (01) | DRG 885 ==
LOC: ED 21:07 → 3S 01-10 01:53